=== PATIENT | female | born 1995 | race Two or more races ===

== ENCOUNTER 2017-01-29 15:07 | Emergency (ER) | payer MEDICAID ==
[~2017-01-29] VITALS: Ht 157.5 cm; Wt 111.6 kg
[2017-01-29 15:25] VITALS: BP 109/73
[2017-01-29] MEDS ORDERED: TYLENOL EXTRA500 MG ORAL (15:59)
[2017-01-29 16:04] VITALS: BP 109/73
--- NOTE | 2017-01-29 16:17 | Emergency Room Report ---
History of Present Illness General Chief Complaint: Dyspnea/Respdistress Source: Patient Present Illness HPI The patient is a 22-year-old female presenting for chest pain. She states that this began 2 days prior for no known reason and has continued. It is described as a 5/10 pressure to the mid chest and does not radiate. She states that she becomes short of breath after climbing a flights of stairs. She denies any medical history including asthma. She denies any other symptoms including N, V , F, chills, cough, abd pain, rash, dizziness Allergies: Coded Allergies: No Known Allergies (Unverified , 01/29/17) Patient History Past Medical History: see triage record Pertinent Family History: none Last Menstrual Period: last week Now: No Reviewed Nursing Documentation: PMH: Agreed, PSxH: Agreed Nursing Documentation-PMH Past Medical History: No Stated History Review of Systems All Other Systems: negative except mentioned in HPI Physical Exam Vital Signs Date Time Temp Pulse Resp B/P (MAP) Pulse Ox O2 Delivery O2 Flow Rate FiO2 01/29/17 15:16 98.1 62 18 109/73 99 Room Air Sp02 EP Interpretation: reviewed, normal General Appearance: no apparent distress, alert, GCS 15, non-toxic Head: normocephalic, atraumatic Eyes: bilateral eye normal inspection, bilateral eye PERRL ENT: hearing grossly normal, normal pharynx, no angioedema, normal voice Neck: full range of motion, supple/symm/no masses Respiratory: lungs clear, normal breath sounds, speaking full sentences, other - TTP over central chest Cardiovascular #1: regular rate, rhythm, no edema, no JVD, no murmur, no rub Gastrointestinal: normal bowel sounds, non tender, soft, non-distended, no guarding, no rebound Musculoskeletal: back normal, gait/station normal, normal range of motion, tender - TTP over sternum Neurologic: alert, oriented x3, responsive, motor strength/tone normal, sensory intact, speech normal Psychiatric: judgement/insight normal, memory normal, mood/affect normal, no suicidal/homicidal ideation Skin: normal color, no rash, warm/dry, well hydrated Medical Decision Making PA Attestation Dr. Ingram is my supervising physician. Patient management was discussed with my supervising physician Diagnostic Impression: Primary Impression: Nonspecific chest pain ER Course The patient is a 22-year-old female presenting for chest pain Differential diagnosis include but not limited to ACS, PE, musculoskeletal pain , pericarditis, gastritis, among others PE: Vitals WNL. NAD RRR. No MRG. TTP over the mid sternum. Lungs CTA bilat Abd is soft and non tender. EKG shows ARSH. CXR unremarkable She will be DC'ed home and needs to FU with PMD. ER precautions given EKG Diagnostic Results EP Interpretation: NSR. ARSH Chest X-Ray Diagnostic Results Chest X-Ray Diagnostic Results : Chest X-Ray Ordered: Yes # of Views/Limited/Complete: 1 View Indication: Chest Pain EP Interpretation: Yes Interpretation: no consolidation, no effusion, no pneumothorax Impression: No acute disease Electronically Signed by: Seble Ingram MD PA Scribe Text I am acting as scribe for my supervising physician. My supervising physician's interpretation of the chest xrays are there is no consolidation, no effusion, no acute cardiopulmonary disease, no pneumothorax Last Vital Signs Date Time Temp Pulse Resp B/P (MAP) Pulse Ox O2 Delivery O2 Flow Rate FiO2 01/29/17 16:04 98.1 75 18 109/73 99 Room Air 75 Status: improved Disposition: HOME, SELF-CARE Condition: Improved Scripts Acetaminophen* (TYLENOL EXTRA STRENGTH*) 500 Mg Tablet 500 MG ORAL Q8H Y for Prn Headache/Temp > 101, #30 TAB 0 Refills Prov: MAHIN CAMPUZANO 01/29/17 Patient Instructions: Nonspecific Chest Pain, [id number], Shortness of Breath Additional Instructions: I discussed my findings with the patient. All questions and concerns have been answered. Treatment and medication compliance have been addressed. I advised the patient that they need to follow up with PMD in 3-5 days. Return to ED if symptoms worsen, new symptoms arise, or if needed for any reason. Patient verbalized understanding of discharge instructions. MAHIN CAMPUZANO Jan 29, 2017 16:17
--- NOTE | 2017-01-29 16:40 | Diagnostic Imaging Report ---
Indication: Chest pain Comparison: None A single view chest radiograph was obtained. Findings: Cardiomediastinal appearance is within normal limits for age. Pulmonary vascularity is appropriate. The diaphragmatic contour is smooth and costophrenic angles are sharp. No pleural effusions are identified. The bones are unremarkable. Impression: No acute findings
--- NOTE | 2017-02-01 15:58 | Cardiology Report ---
APPROVED REPORT EKG Measurement Heart [id number] Normal sinus rhythm with sinus arrhythmia Normal ECG
== END 2017-01-29 16:05 | disposition home or self-care (01) ==
LOC: EMR 15:46
DX: R07.89 Other chest pain (principal); R06.00 Dyspnea, unspecified
CPT/HCPCS: 71010; 93005; 99283

== ENCOUNTER 2019-03-29 13:31 | Emergency (ER) | payer MEDICAID ==
[~2019-03-29] VITALS: Ht 157.5 cm; Wt 108.0 kg
[~2019-03-29 13:31] MED LIST: TYLENOL EXTRA500 MG ORAL
[2019-03-29 13:40] VITALS: BP 125/83
--- NOTE | 2019-03-29 13:40 | NUR ---
ED Nurse Note: Patient walked in due to abdominal cramping, nausea vomiting started today. No episodes of vomiting at this time. Afebrile. No SOB. VSS.
--- NOTE | 2019-03-29 13:42 | NUR ---
ED Nurse Note: urine sample sent down to lab
[2019-03-29 14:01] LABS: APPEARANCE,URINE CLEAR; BILIRUBIN, URINE NEGATIVE (NEGATIVE); COLOR,URINE PALE YELLOW; GLUCOSE, URINE (UA) NEGATIVE (NEGATIVE); KETONES,URINE 2+ (NEGATIVE); LEUKOCYTE ESTERASE ,URINE 3+ (NEGATIVE); NITRITE,URINE NEGATIVE (NEGATIVE); PH,URINE 6 (4.5-8.0); PROTEIN,URINE NEGATIVE (NEGATIVE); UROBILINOGEN,URINE NORMAL MG/DL (0.0-1.0)
[2019-03-29] MEDS ORDERED: Dicyclomine HCl 10mg/5ml oral soln ORAL ONE (14:15)
[2019-03-29] MEDS ORDERED: Lidocaine 2% Visc 15ml soln ORAL ONE (14:15)
[2019-03-29] MEDS ORDERED: Mylanta II UD 30ml ORAL ONE (14:15)
--- NOTE | 2019-03-29 14:20 | Emergency Room Report ---
History of Present Illness General Chief Complaint: Abdominal Pain Source: Patient Present Illness HPI 24-year-old female presents to the emergency department complaining of 6 out of 10 severity diffuse generalized lower abdominal cramping sensation with diarrhea , nausea and vomiting since this a.m. Patient reports that her cousin has similar symptoms as well. Denies recent travel. Patient reports that she needed to leave work due to multiple episodes of vomiting and diarrhea. Patient denies blood in the vomit or stool she denies black tarry stools. Patient denies fever she reports some chills she denies suspicion of however she states she did take Plan B almost 1 month ago. Patient states that her last menstrual period was 1 month ago. She denies specific abdominal tenderness and denies any aggravating or relieving factors at this time. She denies dysuria or hematuria, She reports taking Pyridium because she was having urinary frequency. Allergies: Coded Allergies: No Known Allergies (Unverified , 01/29/17) Patient History Past Medical History: see triage record Past Surgical History: none Pertinent Family History: none Now: No Reviewed Nursing Documentation: PMH: Agreed; PSxH: Agreed Nursing Documentation-PMH Past Medical History: No Stated History Review of Systems All Other Systems: negative except mentioned in HPI Physical Exam Vital Signs Date Time Temp Pulse Resp B/P (MAP) Pulse Ox O2 Delivery O2 Flow Rate FiO2 03/29/19 13:35 98.2 73 17 125/83 (97) 100 Room Air Sp02 EP Interpretation: reviewed, normal General Appearance: no apparent distress, alert, GCS 15, non-toxic Head: normocephalic, atraumatic Eyes: bilateral eye normal inspection, bilateral eye PERRL ENT: hearing grossly normal, normal voice Neck: full range of motion Respiratory: lungs clear, normal breath sounds, speaking full sentences Cardiovascular #1: regular rate, rhythm Gastrointestinal: normal bowel sounds, non tender, soft, non-distended, no guarding Genitourinary: normal inspection, no CVA tenderness Musculoskeletal: gait/station normal, normal range of motion, non-tender Neurologic: alert, oriented x3, responsive, motor strength/tone normal, sensory intact, speech normal, grossly normal Psychiatric: judgement/insight normal Skin: no rash Lymphatic: no adenopathy Medical Decision Making PA Attestation Dr. Vallecillo is my supervising Physician whom patient management has been discussed with. Diagnostic Impression: Primary Impression: Nausea, vomiting and diarrhea Additional Impression: UTI (urinary tract infection) Qualified Codes: N30.01 - Acute cystitis with hematuria ER Course 24-year-old female presents to the emergency department complaining of 6 out of 10 severity diffuse generalized lower abdominal cramping sensation with diarrhea , nausea and vomiting since this a.m. Patient reports that her cousin has similar symptoms as well. Denies recent travel. Patient reports that she needed to leave work due to multiple episodes of vomiting and diarrhea. Patient denies blood in the vomit or stool she denies black tarry stools. Patient denies fever she reports some chills she denies suspicion of however she states she did take Plan B almost 1 month ago. Patient states that her last menstrual period was 1 month ago. She denies specific abdominal tenderness and denies any aggravating or relieving factors at this time. She denies dysuria or hematuria, She reports taking Pyridium because she was having urinary frequency. Ddx considered but are not limited to Diverticulitis, acute appy, diarrhea,UC, PUD, GE, pancreatitis, gallstone, ovarian torsion, ectopic , PID tubo-ovarian abscess. Vital signs: are WNL, pt. is afebrile H&PE are most consistent with Viral GE, will r/o . No evidence to suspect acute abdomen based on physical exam. ORDERS: -UA: Elevated white blood cells and leuks with presence of few bacteria and few squamous cells. -URINE HCG:Negative ED INTERVENTIONS: -PO Zofran 4mg. -GI Cocktail: Mylanta, viscous lidocaine, Bentyl PO -After above interventions this patient successfully completed oral fluid challenge without nausea or vomiting. DISCHARGE: At this time pt. is stable for d/c to home. Will provide printed patient care instructions, and any necessary prescriptions. Care plan and follow up instructions have been discussed with the patient prior to discharge. Labs Test 03/29/19 13:42 Urine Color Pale yellow Urine Appearance Clear Urine pH 6 (4.5-8.0) Urine Specific [place] 1.015 (1.005-1.035) Urine Protein Negative (NEGATIVE) Urine Glucose (UA) Negative (NEGATIVE) Urine Ketones 2+ (NEGATIVE) Urine Blood 1+ (NEGATIVE) Urine Nitrite Negative (NEGATIVE) Urine Bilirubin Negative (NEGATIVE) Urine Urobilinogen Normal MG/DL (0.0-1.0) Urine Leukocyte Esterase 3+ (NEGATIVE) Urine RBC 0-2 /HPF (0 - 2) Urine WBC 5-10 /HPF (0 - 2) Urine Squamous Epithelial Cells Few /LPF (NONE/OCC) Urine Bacteria Few /HPF (NONE) Urine HCG, Qualitative Negative (NEGATIVE) Last Vital Signs Date Time Temp Pulse Resp B/P (MAP) Pulse Ox O2 Delivery O2 Flow Rate FiO2 03/29/19 13:40 73 17 Room Air 03/29/19 13:40 98.2 125/83 100 Disposition: HOME, SELF-CARE Condition: Stable Scripts Nitrofurantoin Monohyd/M-Cryst* (MACROBID 100 MG*) 100 Mg Capsule 100 MG ORAL EVERY 12 HOURS for 7 Days, #14 CAP Prov: Brittaney Aguirre 03/29/19 Ranitidine Hcl* (ACID CONTROL*) 150 Mg Tablet 150 MG ORAL TWICE A DAY for 7 Days, #14 TAB Prov: Brittaney Aguirre 03/29/19 Dicyclomine Hcl* (DICYCLOMINE HCL*) 10 Mg Capsule 10 MG ORAL TID, #12 CAP Prov: Brittaney Aguirre 03/29/19 Ondansetron Odt* (ZOFRAN ODT*) 4 Mg Tab.rapdis 4 MG BC EVERY 8 HOURS PRN for Nausea & Vomiting, #12 TAB 0 Refills Prov: Brittaney Aguirre 03/29/19 Departure Forms: Return to Work Return to Work Date: Mar 31, 2019 Work Restrictions: None Other Restrictions: Please excuse from 03/29/19. May return Sooner if Symptoms have resolved. Return to Full Activity: Apr 01, 2019 Patient Instructions: Viral Gastroenteritis, Adult Additional Instructions: Take medications as directed. Follow up with a Primary Care Provider in 3-5 days, even if your symptoms have resolved. --Please review list of primary care clinics, if you do not already have a primary care provider Return sooner to ED if new symptoms occur, or current symptoms become worse. - Please note that this Emergency Department Report was dictated using [employer] scientist technology software, occasionally this can lead to erroneous entry secondary to interpretation by the dictation equipment. Brittaney Aguirre Mar 29, 2019 14:20
[2019-03-29] MEDS ORDERED: DICYCLOMINE HCL10 MG ORAL (15:15)
[2019-03-29] MEDS ORDERED: ACID CONTROL150 MG ORAL (15:15)
[2019-03-29] MEDS ORDERED: ONDANSETRON ODT4 MG BC (15:15)
[2019-03-29] MEDS ORDERED: NITROFURANTOIN100 M2 ORAL (15:20)
--- NOTE | 2019-03-29 15:26 | NUR ---
ER DISCHARGE NOTE: Patient is cleared to be discharged per ERMD, pt is aox4, on room air, with stable vital signs. pt was given dc and prescription instructions, pt was able to verbalize understanding, pt id band removed. pt is able to ambulate with steady gait. pt took all belongings.
[2019-03-29 15:28] VITALS: BP 134/80
== END 2019-03-29 15:29 | disposition home or self-care (01) ==
LOC: EMR 14:12
DX: R11.2 Nausea with vomiting, unspecified (principal); R19.7 Diarrhea, unspecified; N30.01 Acute cystitis with hematuria
CPT/HCPCS: 81003; 81025; Z7502; 99283

== ENCOUNTER 2019-04-13 12:38 | Emergency (ER) | payer MEDICAID ==
[~2019-04-13] VITALS: Ht 157.5 cm; Wt 108.9 kg
[~2019-04-13 12:38] MED LIST changes: +ACID CONTROL150 MG ORAL; +DICYCLOMINE HCL10 MG ORAL; +NITROFURANTOIN100 M2 ORAL; +ONDANSETRON ODT4 MG BC
[2019-04-13 12:59] VITALS: BP 118/79
--- NOTE | 2019-04-13 13:13 | Emergency Room Report ---
History of Present Illness General Chief Complaint: Abdominal Pain Source: Patient Present Illness HPI 24-year-old female presents to the emergency department complaining of 10 out of 10 severity generalized abdominal pain and cramping with associated nausea, vomiting and diarrhea since last night. Patient reports that she is a vegetarian for over 2 years and last night she accidentally ate a moderate amount of pork unknowingly. Patient reports she began having vomiting and diarrhea within the hour. Patient denies blood in the vomit or stool she denies black tarry stool she does report that her vomitus was the consistency of a dark brown she states that in addition to the ports she also had a being dish. Patient denies fevers or chills, recent travel, ill contacts with similar symptoms. Patient denies or suspicion of . Patient denies headache, dizziness, shortness of breath, urinary frequency, urgency, dysuria or hematuria. Pt. reports cloudy urine and recently was treated for UTi last month. Patient denies taking any medications for her symptoms. No aggravating or relieving factors at this time. Allergies: Coded Allergies: No Known Allergies (Unverified , 04/13/19) Patient History Past Medical History: see triage record Past Surgical History: none Pertinent Family History: none Last Menstrual Period: Mar, 2019 Now: No Reviewed Nursing Documentation: PMH: Agreed; PSxH: Agreed Nursing Documentation-PMH Past Medical History: No Stated History Review of Systems All Other Systems: negative except mentioned in HPI Physical Exam Vital Signs Date Time Temp Pulse Resp B/P (MAP) Pulse Ox O2 Delivery O2 Flow Rate FiO2 04/13/19 12:49 97.5 85 18 118/79 (92) 97 Room Air Sp02 EP Interpretation: reviewed, normal General Appearance: no apparent distress, alert, GCS 15, non-toxic Head: normocephalic, atraumatic Eyes: bilateral eye normal inspection, bilateral eye PERRL ENT: hearing grossly normal, normal voice Neck: full range of motion Respiratory: lungs clear, normal breath sounds, speaking full sentences Cardiovascular #1: regular rate, rhythm Gastrointestinal: normal bowel sounds, non tender, soft, no peritonitis, non- distended, no guarding Genitourinary: normal inspection, no CVA tenderness Musculoskeletal: decreased range of motion, normal range of motion, gait/ station normal, non-tender Neurologic: alert, motor strength/tone normal, oriented x3, sensory intact, responsive, speech normal Psychiatric: judgement/insight normal Skin: normal color, warm/dry, well hydrated Medical Decision Making PA Attestation Dr. Torrez is my supervising Physician whom patient management has been discussed with. Diagnostic Impression: Primary Impression: Nausea vomiting and diarrhea Additional Impression: UTI (urinary tract infection) Qualified Codes: N30.01 - Acute cystitis with hematuria ER Course 24-year-old female presents to the emergency department complaining of 10 out of 10 severity generalized abdominal pain and cramping with associated nausea, vomiting and diarrhea since last night. Patient reports that she is a vegetarian for over 2 years and last night she accidentally ate a moderate amount of pork unknowingly. Patient reports she began having vomiting and diarrhea within the hour. Patient denies blood in the vomit or stool she denies black tarry stool she does report that her vomitus was the consistency of a dark brown she states that in addition to the ports she also had a being dish. Patient denies fevers or chills, recent travel, ill contacts with similar symptoms. Patient denies or suspicion of . Patient denies headache, dizziness, shortness of breath, urinary frequency, urgency, dysuria or hematuria. Pt. reports cloudy urine and recently was treated for UTi last month. Patient denies taking any medications for her symptoms. No aggravating or relieving factors at this time. Ddx considered but are not limited to GE, colitis, acute appendicitis, SBO, Cyclical Vomiting secondary to THC, or Vital signs: WNL, pt. is afebrile, H&PE are most consistent with GE most likely due to consumption of pork or could be viral in etiology, no evidence to suggest acute abdomen on physical exam. No evidence to suggest significant dehydration. ORDERS: -Urine Hcg: Negative - UA: moderate bacteria, no WBC's, 1+ Leuks, amorphous sediment and rbc's. ED INTERVENTIONS: -GI Cocktail -Zofran 4mg ---Ordered Twice. Pt. did not allow enough time between interventions for Zofran to work. She threw up the GI cocktail right after it was administered. Examination of the vomitus shows no signs of blood or dark color. Pt. was able to tolerate the GI cocktail the second time after allowing 15-20 minutes for the second zofran to work. After above interventions this patient successfully completed oral fluid challenge without nausea or vomiting. DISCHARGE: At this time pt. is stable for d/c to home. Will provide printed patient care instructions, and any necessary prescriptions. Care plan and follow up instructions have been discussed with the patient prior to discharge. Labs Test 04/13/19 13:20 Urine Color Pale yellow Urine Appearance Cloudy Urine pH 6 (4.5-8.0) Urine Specific [place] 1.020 (1.005-1.035) Urine Protein 2+ (NEGATIVE) Urine Glucose (UA) Negative (NEGATIVE) Urine Ketones 1+ (NEGATIVE) Urine Blood 1+ (NEGATIVE) Urine Nitrite Negative (NEGATIVE) Urine Bilirubin Negative (NEGATIVE) Urine Urobilinogen Normal MG/DL (0.0-1.0) Urine Leukocyte Esterase 1+ (NEGATIVE) Urine RBC 2-4 /HPF (0 - 2) Urine WBC 2-4 /HPF (0 - 2) Urine Squamous Epithelial Cells Few /LPF (NONE/OCC) Urine Amorphous Sediment Moderate /LPF (NONE) Urine Bacteria Many /HPF (NONE) Urine HCG, Qualitative Negative (NEGATIVE) Last Vital Signs Date Time Temp Pulse Resp B/P (MAP) Pulse Ox O2 Delivery O2 Flow Rate FiO2 04/13/19 12:59 85 18 Room Air 04/13/19 12:59 97.5 118/79 97 Status: improved Disposition: HOME, SELF-CARE Condition: Stable Scripts Sulfamethoxazole/Trimethoprim Ss Tab* (SULFAMETHOXAZOLE-TMP SS TABLET*) 1 Each Tablet 1 TAB ORAL TWICE A DAY for 7 Days, #14 TAB Prov: Brittaney Aguirre 04/13/19 Ondansetron Odt* (ZOFRAN ODT*) 4 Mg Tab.rapdis 4 MG BC EVERY 8 HOURS PRN for Nausea & Vomiting, #10 TAB 0 Refills Prov: Brittaney Aguirre 04/13/19 Dicyclomine Hcl* (DICYCLOMINE HCL*) 10 Mg Capsule 10 MG ORAL TID, #10 CAP Prov: Brittaney Aguirre 04/13/19 Patient Instructions: Abdominal Pain, Adult Additional Instructions: Take medications as directed. Follow up with a Primary Care Provider in 3-5 days, even if your symptoms have resolved. --Please review list of primary care clinics, if you do not already have a primary care provider Return sooner to ED if new symptoms occur, or current symptoms become worse. - Please note that this Emergency Department Report was dictated using [employer] technology software, occasionally this can lead to erroneous entry secondary to interpretation by the dictation equipment. Brittaney Aguirre Apr 13, 2019 13:13
[2019-04-13] MEDS ORDERED: Mylanta II UD 30ml ORAL ONE ×2 (13:15→15:15)
[2019-04-13] MEDS ORDERED: Lidocaine 2% Visc 15ml soln ORAL ONE ×2 (13:15→15:15)
[2019-04-13] MEDS ORDERED: Dicyclomine HCl 10mg/5ml oral soln ORAL ONE ×2 (13:15→15:15)
[2019-04-13] MEDS ORDERED: DICYCLOMINE HCL10 MG ORAL (15:42)
[2019-04-13] MEDS ORDERED: ONDANSETRON ODT4 MG BC (15:42)
[2019-04-13 16:15] VITALS: BP 115/80
[2019-04-13 16:23] LABS: APPEARANCE,URINE CLOUDY; BILIRUBIN, URINE NEGATIVE (NEGATIVE); GLUCOSE, URINE (UA) NEGATIVE (NEGATIVE); KETONES,URINE 1+ (NEGATIVE); LEUKOCYTE ESTERASE ,URINE 1+ (NEGATIVE); NITRITE,URINE NEGATIVE (NEGATIVE); PH,URINE 6 (4.5-8.0); PROTEIN,URINE 2+ (NEGATIVE); UROBILINOGEN,URINE NORMAL MG/DL (0.0-1.0)
[2019-04-13 16:25] LABS: COLOR,URINE PALE YELLOW
[2019-04-13] MEDS ORDERED: SULFAMETHOXAZO1 EAC1 ORAL (20:00)
== END 2019-04-13 16:20 | disposition home or self-care (01) ==
LOC: EMR 13:31
DX: R11.2 Nausea with vomiting, unspecified (principal); R19.7 Diarrhea, unspecified; N30.01 Acute cystitis with hematuria
CPT/HCPCS: 81003; 81025; 87086; Z7502; 99283